=== PATIENT | female | born 1950 | race Caucasian/White ===

== ENCOUNTER 2016-10-10 08:25 | Emergency (ER) | payer OTHER ==
[2016-10-10 08:34] VITALS: TEMP 97.5
--- NOTE | 2016-10-10 08:41 | EDPHY ---
H & P Time Seen by Provider: 10/10/16 08:36 HPI/ROS: Chief complaint. Chest pain HPI. 65-year-old female presents with chest discomfort that began at 6:00 a.m. this morning. She was in bed when it started. She describes as pressure mid chest radiating to the her back and neck. Somewhat better with sitting up. Still present but it is better. No change with exertion or breathing. She had elevated heart rate last week after chemotherapy. She denies shortness of breath today. No cough or fever. No unusual leg pain or swelling. Aspirin prior to arrival. Chemotherapy for ovarian cancer with last chemo 1 week ago. She did have a previous cardiac workup years ago and it was felt that she had indigestion ROS Constitutional. no fever/chills, no weakness Eyes. no problems with vision ENT. no sore throat, no nasal drainage Cardiovascular. Chest pressure Respiratory. no shortness of breath, no cough Abdominal. no abdominal pain, no nausea/vomiting, no diarrhea . no problems urinating MS. no calf pain/swelling, no neck/back pain, no joint pain Skin. no rash Lymph. no swollen glands Neuro. no headache, no dizziness, no difficulty walking or with speech Past Medical/Surgical History: Ovarian cancer currently undergoing chemotherapy, hysterectomy Brother with congestive heart failure otherwise no Social History: Single, nonsmoker, no alcohol Smoking Status: Never smoked Physical Exam: General Appearance: Alert well-developed female mild distress vital signs significant for heart rate 101 Eyes: Pupils equal and round no pallor or injection. ENT, Mouth: Mucous membranes are moist. Respiratory: There are no retractions, lungs are clear to auscultation. Cardiovascular: Regular rate and rhythm. Gastrointestinal: Abdomen is soft and nontender, no masses, bowel sounds normal. Neurological: Awake and alert, sensory and motor exams grossly normal. Skin: Warm and dry, no rashes. Musculoskeletal: Neck is supple nontender. Extremities symmetrical, full range of motion. Psychiatric: Patient is oriented X 3, there is no agitation. Constitutional: Initial Vital Signs Temperature (C) 36.4 C 10/10/16 08:31 Heart Rate 101 H 10/10/16 08:31 Respiratory Rate 16 10/10/16 08:31 Blood Pressure 114/90 H 10/10/16 08:31 O2 Sat (%) 95 10/10/16 08:31 O2 Delivery Mode Room Air Allergies/Adverse Reactions: penicillin G Allergy (Verified 10/10/16 08:27) Home Medications: Medication Instructions Recorded Albuterol 10/10/16 CARBOPLATIN 10/10/16 Dexamethasone 10/10/16 Prochlorperazine Maleate 10/10/16 Zofran Odt 10/10/16 Medical Decision Making - Diagnostics EKG Interpretation: EKG interpreted by me shows normal sinus rhythm normal interval and axis. QRS is normal. There is T-wave flattening inferiorly. No significant ST elevation or depression. Rate is 97 No old EKGs in our system for comparison Imaging Results: Imaging Impressions Chest X-Ray 10/10/16 08:46 Impression: 1. No active cardiopulmonary disease seen. 2. Central vascular port in good position. Chest/Thorax CTA 10/10/16 09:46 Impression: 1. Mild to moderate volume segmental to subsegmental pulmonary emboli right lower lobe and lingula. 2. Subsegmental atelectasis within the lingula. 3. Small hiatal hernia. Findings discussed with Dawood Velasco M.D. at 10:55 hour, 10/10/2016. Chest x-ray interpreted by Me is normal CT angiogram shows moderate volume PE right lower lobe and lingula Procedures: IV normal saline, monitor ED Course/Re-evaluation: Re-evaluation 9:40 a.m.. Patient is stable. Tachycardic at 1:01 a.m.. Patient and I discussed lab and imaging studies as well as EKG. We discussed elevated D-dimer and recommendation for chest CT. She expresses understanding and agreement. Patient is given a L of saline to help flush contrast. 11:00 a.m. re-evaluation. Patient and I discussed imaging results, treatment plan including recommendation for admission. She expresses understanding and agreement. She would like to be transferred to [facility] because this is where her oncology care is being done. I tried to get in touch with Dr. Johnson her regular physician. Lovenox 1 milligram/kilogram subcu is given I consulted and discussed the case with Dr. Schuyler sandoval at [facility] who accepts the patient in transport. She will be transferred by ambulance Differential Diagnosis: I considered acute coronary syndrome, pneumonia, pulmonary embolus - Data Points Laboratory Results: Laboratory Results 10/10/16 08:45 10/10/16 08:45 10/10/16 10/10/16 10/10/16 08:45 08:45 08:45 WBC 4.88 10^3/uL 10^3/uL (3.80-9.50) RBC 5.01 10^6/uL 10^6/uL (4.18-5.33) Hgb 14.2 g/dL g/dL (12.6-16.3) Hct 42.6 % % (38.0-47.0) MCV 85.0 fL fL (81.5-99.8) MCH 28.3 pg pg (27.9-34.1) MCHC 33.3 g/dL g/dL (32.4-36.7) RDW 15.2 % % (11.5-15.2) Plt Count 219 10^3/uL 10^3/uL (150-400) MPV 8.9 fL fL (8.7-11.7) Neut % (Auto) 75.4 % H % (39.3-74.2) Lymph % (Auto) 23.2 % % (15.0-45.0) [place] % (Auto) 1.0 % L % (4.5-13.0) Eos % (Auto) 0.0 % L % (0.6-7.6) Baso % (Auto) 0.0 % L % (0.3-1.7) Nucleat RBC Rel Count 0.0 % % (0.0-0.2) Absolute Neuts (auto) 3.68 10^3/uL 10^3/uL (1.70-6.50) Absolute Lymphs (auto) 1.13 10^3/uL 10^3/uL (1.00-3.00) Absolute Monos (auto) 0.05 10^3/uL L 10^3/uL (0.30-0.80) Absolute Eos (auto) 0.00 10^3/uL L 10^3/uL (0.03-0.40) Absolute Basos (auto) 0.00 10^3/uL L 10^3/uL (0.02-0.10) Absolute Nucleated RBC 0.00 10^3/uL 10^3/uL (0-0.01) Immature Gran % 0.4 % % (0.0-1.1) Immature Gran # 0.02 10^3/uL 10^3/uL (0.00-0.10) D-Dimer 2.49 ug/mLFEU H ug/mLFEU (0.00-0.50) Sodium 136 mEq/L mEq/L (134-144) Potassium 4.1 mEq/L mEq/L (3.5-5.2) Chloride 97 mEq/L mEq/L (97-110) Carbon Dioxide 25 mEq/l mEq/l (22-31) Anion Gap 14 mEq/L mEq/L (8-16) BUN 19 mg/dL mg/dL (7-23) Creatinine 0.7 mg/dL mg/dL (0.6-1.0) Estimated GFR > 60 Glucose 124 mg/dL H mg/dL (70-100) Calcium 10.3 mg/dL mg/dL (8.5-10.4) Troponin I < 0.012 ng/mL ng/mL (0.000-0.034) Medications Given: Discontinued Medications Enoxaparin Sodium (Lovenox) 75 mg SC EDNOW ONE Stop: 10/10/16 11:10 Last Admin: 10/10/16 11:43 Dose: 75 mg Sodium Chloride (Ns) 1,000 mls @ 0 mls/hr IV ONCE ONE; Wide Open PRN Reason: Protocol Stop: 10/10/16 09:47 Last Admin: 10/10/16 09:57 Dose: 1,000 mls Departure - Departure Disposition: [facility] Clinical Impression: Pulmonary embolism Qualifiers: Pulmonary embolism type: other Chronicity: acute Acute cor pulmonale presence: without acute cor pulmonale Qualified Code(s): I26.99 - Other pulmonary embolism without acute cor pulmonale Condition: Fair Referrals: YAMILET AMBROSE [Other] - As per Instructions
--- NOTE | 2016-10-10 08:44 | CPEKG ---
Heart Rate: 97 RR Interval: 619 P-R Interval: 132 QRSD Interval: 86 QT Interval: 344 QTC Interval: 437 P [place]: -17 QRS [place]: 31 T Wave [place]: 10 EKG Severity - BORDERLINE ECG - EKG Impression: SINUS RHYTHM EKG Impression: BORDERLINE INFERIOR Q WAVES Electronically Signed By: Dawood Velasco 10-Oct-2016 13:01:16
[2016-10-10 08:53] LABS: % IMMATURE GRANULYOCYTES 0.4 % (0.0-1.1); ABSOLUTE IMMATURE GRANULOCYTES 0.02 10^3/uL (0.00-0.10); ADD DIFF? NO; ADD MORPH? NO; ADD SCAN? NO; ATYPICAL LYMPHOCYTE FLAG 0 (0-99); FRAGMENT RBC FLAG 0 (0-99); HEMATOCRIT 42.6 % (38.0-47.0); HEMOGLOBIN 14.2 g/dL (12.6-16.3); LEFT SHIFT FLG 0 (0-99); LIPEMIA HEMOLYSIS FLAG 80 (0-99); MEAN CELL HEMOGLOBIN 28.3 pg (27.9-34.1); MEAN CELL HEMOGLOBIN CONCENTR. 33.3 g/dL (32.4-36.7); MEAN PLATELET VOLUME 8.9 fL (8.7-11.7); PLATELET CLUMPS FLAG 10 (0-99); PLATELET COUNT 219 10^3/uL (150-400); RED BLOOD CELL COUNT 5.01 10^6/uL (4.18-5.33); RED CELL DISTRIBUTION WIDTH 15.2 % (11.5-15.2)
[2016-10-10 09:21] VITALS: RESP 18
[2016-10-10 09:26] LABS: ANION GAP 14 mEq/L (8-16); CALCIUM 10.3 mg/dL (8.5-10.4); CARBON DIOXIDE 25 mEq/l (22-31); CHLORIDE 97 mEq/L (97-110); CREATININE 0.7 mg/dL (0.6-1.0); GLOMERULAR FILTRATION RATE > 60; GLUCOSE 124 mg/dL (70-100); POTASSIUM 4.1 mEq/L (3.5-5.2); SODIUM 136 mEq/L (134-144)
[2016-10-10 09:37] LABS: TROPONIN I < 0.012 ng/mL (0.000-0.034)
[2016-10-10] MEDS ORDERED: NS 1,000 ML IV ONE (09:46)
[2016-10-10] MEDS ORDERED: IOPAMIDOL (ISOVUE 370) 100 ML BTL IV ONE (10:09)
[2016-10-10] MEDS ORDERED: ENOXAPARIN 80 MG/0.8 ML SYR SC ONE (11:09)
[2016-10-10 11:54] VITALS: BP 141/99
[2016-10-10 12:36] VITALS: PULSE 84; O2SAT 95
== END 2016-10-10 12:34 | disposition short-term general hospital (02) ==
DX: I26.99 Other pulmonary embolism without acute cor pulmonale (principal); E86.9 Volume depletion, unspecified; Z85.43 Personal history of malignant neoplasm of ovary
CPT/HCPCS: J1650; Q9967

== ENCOUNTER 2018-02-15 21:45 | Observation (INO) | payer OTHER ==
--- NOTE | 2018-02-15 22:04 | EDPHY ---
H & P Stated Complaint: SYNCOPAL EPISODE, NAUSEA, WEAKNESS @ 2030 Time Seen by Provider: 02/15/18 22:04 HPI/ROS: HPI CHIEF COMPLAINT: Syncope HISTORY OF PRESENT ILLNESS: 67-year-old female presents emergency room by private vehicle for syncope. Presents emergency room after she had a syncopal episode at home. She states she was standing in the kitchen making dinner got very flushed, lightheaded, felt very warm went outside to cool off and felt even further nauseous and lightheaded. She went to the bathroom sat on the toilet could barely hold herself up she did have a bowel movement. No vomiting. States her bowel movement was normal. She got up off the toilet walk a few steps got even more lightheaded without dizziness, and then had a syncopal episode. She fell to the ground did not strike her head. She recovered rather quickly. She denies any chest pain or shortness of breath or palpitations during this event. She was standing in the kitchen cooking. She does state it was hot. Since arriving to the emergency room she states she feels globally weak. Otherwise she has no chest pain or shortness of breath. Denies nausea vomiting. Past Medical History: Ovarian cancer, pulmonary embolism Past Surgical History: Hysterectomy, chest port Social History: Denies drugs alcohol tobacco. Family History: Noncontributory ROS REVIEW OF SYSTEMS: 10 Systems were reviewed and negative with the exception of the elements mentioned in the history of present illness. Exam Constitutional appears well nontoxic no acute distress triage nursing summary reviewed, vital signs reviewed, awake/alert. Eyes normal conjunctivae and sclera, EOMI, PERRLA. HENT normal inspection, atraumatic, moist mucus membranes, no epistaxis, neck supple/ no meningismus, no raccoon eyes. Respiratory clear to auscultation bilaterally, normal breath sounds, no respiratory distress, no wheezing. Cardiovascular rate normal, regular rhythm, no murmur, no edema, distal pulses normal. Gastrointestinal soft, non-tender, no rebound, no guarding, normal bowel sounds, no distension, no pulsatile mass. Genitourinary no CVA tenderness. Musculoskeletal no midline vertebral tenderness, full range of motion, no calf swelling, no tenderness of extremities, no meningismus, good pulses, neurovascularly intact. Skin pink, warm, & dry, no rash, skin atraumatic. Neurologic awake, alert and oriented x 3, AAOx3, moves all 4 extremities equally, motor intact, sensory intact, CN II-XII intact, normal cerebellar, normal vision, normal speech. Psychiatric normal mood/affect. Heme/Lymph/Immune no lymphadenopathy. Differential Diagnosis: Differential diagnosis includes but is not limited to: ACS, atypical chest pain, pneumothorax, pneumonia, pulmonary embolism, aortic dissection, congestive heart failure, tumor, musculoskeletal pain, esophageal pain, GERD, peptic ulcer disease, pancreatitis Medical Decision Making: Plan for this patient IV establishment IV fluid bolus , check D-dimer, troponin, EKG, monitoring tech, electrolytes, and re-evaluate. Re-evaluation: EKG interpretation by me on record in [facility] system. Impression time of EKG 2211, sinus rhythm rate of 88 this is a normal sinus rhythm without any signs of cardiac arrhythmia or acute ischemia specifically no ST elevation no ST depression no T-wave abnormalities no prolonged intervals. Troponin 0.00 D-dimer negative. Electrolytes are appropriate. Vital signs are stable with no tachycardia no hypoxia. EKG is normal without any ischemia or cardiac arrhythmia. CBC reviewed shows slightly high white count. Urinalysis pending. Patient re-evaluated eager for discharge wants to go home. She states she feels fine. Denies chest pain or shortness of breath. Denies feeling lightheaded or ill. 0125: Patient ambulated around the emergency room still feels lightheaded, and nauseous. Offered patient hospital admission for observation rehydration nausea control and syncope she is agreeable for this. She states she does not feel well enough to go home. Plan for hospital admission for nausea, lightheadedness, and syncopal episode earlier tonight. - Personal History Current Tetanus Diphtheria and Acellular Pertussis (TDAP): Yes - Medical/Surgical History Hx Asthma: No Hx Chronic Respiratory Disease: No Hx Diabetes: No Hx Cardiac Disease: No Hx Renal Disease: No Hx Cirrhosis: No Hx Alcoholism: No Hx HIV/AIDS: No Hx Splenectomy or Spleen Trauma: No Other PMH: ovarian ca stage I, hysterectomy. IV chemo, IN REMISSION FOR 1 YEAR - Social History Smoking Status: Never smoked Constitutional: Initial Vital Signs Temperature (C) 36.8 C 02/15/18 21:58 Heart Rate 100 02/15/18 21:58 Respiratory Rate 16 02/15/18 21:58 Blood Pressure 135/87 H 02/15/18 21:58 O2 Sat (%) 96 02/15/18 21:58 O2 Delivery Mode Room Air Allergies/Adverse Reactions: marie Allergy (Severe, Verified 02/16/18 09:17) Anaphylaxis marie flavor Allergy (Severe, Verified 02/16/18 09:17) Anaphylaxis adhesive tape Allergy (Verified 02/15/18 21:57) beeswax Allergy (Verified 02/15/18 21:57) erythromycin base Allergy (Verified 02/16/18 09:17) nausea penicillin G Allergy (Verified 10/10/16 08:27) Home Medications: Medication Instructions Recorded Loperamide HCl [Imodium 2 mg (*)] 2 mg PO QID PRN cap 02/16/18 Ranitidine HCl [Zantac] 150 mg PO DAILY PRN 02/16/18 Medical Decision Making - Data Points Laboratory Results: Laboratory Results 02/15/18 22:13 02/15/18 22:13 Medications Given: Discontinued Medications Acetaminophen (Tylenol) 650 mg PO Q4HRS PRN PRN Reason: Pain, Mild/Fever, Can Take PO Stop: 08/15/18 10:11 Last Admin: 02/16/18 15:21 Dose: 650 mg Furosemide (Lasix Injection) 40 mg IVP EDNOW ONE Stop: 02/16/18 00:30 Last Admin: 02/16/18 00:41 Dose: Not Given Sodium Chloride (Ns) 1,000 mls @ 0 mls/hr IV EDNOW ONE; Wide Open PRN Reason: Protocol Stop: 02/15/18 22:06 Last Admin: 02/15/18 22:22 Dose: 1,000 mls Sodium Chloride (Ns) 1,000 mls @ 0 mls/hr IV ONCE ONE PRN Reason: Wide Open Stop: 02/16/18 01:25 Last Admin: 02/16/18 01:28 Dose: 1,000 mls Sodium Chloride (Ns) 1,000 mls @ 125 mls/hr IV CONT YESSENIA Stop: 08/15/18 10:14 Last Admin: 02/16/18 10:27 Dose: 1,000 mls Influenza Virus Vaccine Quadrival (Flulaval Quad [id number] (6mo+)) 0.5 ml IM .ONCE ONE Stop: 02/16/18 10:29 Last Admin: 02/16/18 10:59 Dose: 0.5 ml Loperamide HCl ( Imodium) 2 mg PO QID PRN PRN Reason: Diarrhea/Loose Stools Stop: 08/15/18 10:16 Last Admin: 02/16/18 10:27 Dose: 2 mg Ondansetron HCl (Zofran Odt) 4 mg PO Q4HRS PRN PRN Reason: Nausea/Vomiting, Use 1st Stop: 08/15/18 10:11 Last Admin: 02/16/18 10:27 Dose: 4 mg Promethazine HCl (Phenergan) 6.25 mg IVP ONCE ONE Stop: 02/16/18 01:25 Last Admin: 02/16/18 01:28 Dose: 6.25 mg Point of Care Test Results: Chemistry 02/15/18 22:13 POC Troponin I 0.00 ng/mL ng/mL (0.00-0.08) Departure - Departure Disposition: [facility] Clinical Impression: Syncope Qualifiers: Syncope type: unspecified Qualified Code(s): R55 - Syncope and collapse Condition: Good
[2018-02-15] MEDS ORDERED: NS 1,000 ML IV ONE (22:05)
[2018-02-15 22:24] LABS: PLATELET COUNT 241 10^3/uL (150-400)
[2018-02-15 22:32] LABS: INR 0.94 (0.83-1.16); PROTIME(PATIENT) 12.8 SEC (12.0-15.0)
[2018-02-15 22:36] LABS: CREATINE KINASE 49 IU/L (0-156)
[2018-02-16] MEDS ORDERED: FUROSEMIDE 40 MG/4 ML VIAL IVP ONE (00:29)
[2018-02-16] MEDS ORDERED: PROMETHAZINE HCL 25 MG/ML INJ IVP ONE (01:24)
[2018-02-16] MEDS ORDERED: NS 1,000 ML IV ONE (01:24)
[2018-02-16] MEDS ORDERED: PROMETHAZINE HCL 25 MG/ML INJ ONE (01:25)
[2018-02-16] MEDS ORDERED: ACETAMINOPHEN 325 MG TAB PO PRN (10:12)
[2018-02-16] MEDS ORDERED: ONDANSETRON DISINTEGRATING 4 MG TAB PO PRN (10:12)
[2018-02-16] MEDS ORDERED: ONDANSETRON 4 MG/2 ML VIAL IVP PRN (10:12)
[2018-02-16] MEDS ORDERED: NS 1,000 ML IV SCH (10:15)
[2018-02-16] MEDS ORDERED: LOPERAMIDE HCL 2 MG CAP PO PRN (10:17)
--- NOTE | 2018-02-16 10:21 | PDGENHP ---
History and Physical - Chief Complaint Syncope - History of Present Illness Iris Durant is a 67 yo F with a PMHx of Ovarian Cancer, PE in 2017 who presents to [facility] after syncopal episode last night. She reports she was in her kitchen cooking dinner when she acutely became lightheaded, felt very warm, and became nauseous. She went to the bathroom, feeling very weak, and had an episode of diarrhea. After getting up from the toilet, she took a few steps and then passed out. She denies any trauma to body or head. She denies other preceding symptoms including chest pain, palpitations, shortness of breath, headache, visual changes, weakness, numbness, seizure activity. She denies any incontinence or tongue biting. She reports that she experienced significant chest pain when he had a PE in 2017 and had no syncope associated at that time. She reports that she has been feeling well up until yesterday evening. She has had several episodes of diarrhea overnight since coming to the hospital and continues to feel mildly nauseous. History Information - Allergies/Home Medication List Allergies/Adverse Reactions: marie Allergy (Severe, Verified 02/16/18 09:17) Anaphylaxis marie flavor Allergy (Severe, Verified 02/16/18 09:17) Anaphylaxis adhesive tape Allergy (Verified 02/15/18 21:57) beeswax Allergy (Verified 02/15/18 21:57) erythromycin base Allergy (Verified 02/16/18 09:17) nausea penicillin G Allergy (Verified 10/10/16 08:27) Home Medications: Ranitidine HCl [Zantac] 150 mg PO DAILY PRN 02/16/18 [Last Taken 02/14/18] I have personally reviewed and updated: family history, medical history, social history, surgical history - Past Medical History cancer, pulmonary embolism - Surgical History Reports: hysterectomy - Family History Positive for: non-pertinent - Social History Smoking Status: Never smoked Review of Systems Review of Systems: ROS: 10pt was reviewed & negative except for what was stated in HPI & below Physical Exam Physical Exam: Temp Pulse Resp BP Pulse Ox 37.2 C 108 H 14 136/81 H 92 02/16/18 07:56 02/16/18 07:56 02/16/18 07:56 02/16/18 07:56 02/16/18 07:56 Constitutional: no apparent distress Eyes: PERRL Ears, Nose, Mouth, Throat: moist mucous membranes Cardiovascular: regular rate and rhythym, tachycardia Respiratory: no respiratory distress Gastrointestinal: soft, non-tender abdomen Skin: warm Musculoskeletal: full muscle strength Neurologic: AAOx3 Psychiatric: interacting appropriately Lab Data & Imaging Review 02/15/18 22:13 02/15/18 22:13 WBC 16.79 10^3/uL (3.80-9.50) H 02/15/18 22:13 RBC 5.11 10^6/uL (4.18-5.33) 02/15/18 22:13 Hgb 15.3 g/dL (12.6-16.3) 02/15/18 22:13 Hct 44.5 % (38.0-47.0) 02/15/18 22:13 MCV 87.1 fL (81.5-99.8) 02/15/18 22:13 MCH 29.9 pg (27.9-34.1) 02/15/18 22:13 MCHC 34.4 g/dL (32.4-36.7) 02/15/18 22:13 RDW 13.4 % (11.5-15.2) 02/15/18 22:13 Plt Count 241 10^3/uL (150-400) 02/15/18 22:13 MPV 8.6 fL (8.7-11.7) L 02/15/18 22:13 Neut % (Auto) 82.1 % (39.3-74.2) H 02/15/18 22:13 Lymph % (Auto) 10.8 % (15.0-45.0) L 02/15/18 22:13 [place] % (Auto) 5.8 % (4.5-13.0) 02/15/18 22:13 Eos % (Auto) 0.7 % (0.6-7.6) 02/15/18 22:13 Baso % (Auto) 0.2 % (0.3-1.7) L 02/15/18 22:13 Nucleat RBC Rel Count 0.0 % (0.0-0.2) 02/15/18 22:13 Absolute Neuts (auto) 13.78 10^3/uL (1.70-6.50) H 02/15/18 22:13 Absolute Lymphs (auto) 1.81 10^3/uL (1.00-3.00) 02/15/18 22:13 Absolute Monos (auto) 0.97 10^3/uL (0.30-0.80) H 02/15/18 22:13 Absolute Eos (auto) 0.12 10^3/uL (0.03-0.40) 02/15/18 22:13 Absolute Basos (auto) 0.04 10^3/uL (0.02-0.10) 02/15/18 22:13 Absolute Nucleated RBC 0.00 10^3/uL (0-0.01) 02/15/18 22:13 Immature Gran % 0.4 % (0.0-1.1) 02/15/18 22:13 Immature Gran # 0.07 10^3/uL (0.00-0.10) 02/15/18 22:13 PT 12.8 SEC (12.0-15.0) 02/15/18 22:13 INR 0.94 (0.83-1.16) 02/15/18 22:13 APTT 24.3 SEC (23.0-38.0) 02/15/18 22:13 D-Dimer 0.43 ug/mLFEU (0.00-0.50) 02/15/18 22:13 Sodium 138 mEq/L (135-145) 02/15/18 22:13 Potassium 3.7 mEq/L (3.5-5.2) 02/15/18 22:13 Chloride 104 mEq/L (97-110) 02/15/18 22:13 Carbon Dioxide 25 mEq/l (22-31) 02/15/18 22:13 Anion Gap 9 mEq/L (6-14) 02/15/18 22:13 BUN 13 mg/dL (7-23) 02/15/18 22:13 Creatinine 0.7 mg/dL (0.6-1.0) 02/15/18 22:13 Estimated GFR > 60 02/15/18 22:13 Glucose 101 mg/dL (70-100) H 02/15/18 22:13 Calcium 10.0 mg/dL (8.5-10.4) 02/15/18 22:13 Magnesium 2.1 mg/dL (1.6-2.3) 02/15/18 22:13 Total Bilirubin 0.4 mg/dL (0.1-1.4) 02/15/18 22:13 Conjugated Bilirubin 0.3 mg/dL (0.0-0.5) 02/15/18 22:13 Unconjugated Bilirubin 0.1 mg/dL (0.0-1.1) 02/15/18 22:13 AST 19 IU/L (14-46) 02/15/18 22:13 ALT 24 IU/L (9-52) 02/15/18 22:13 Alkaline Phosphatase 78 IU/L (38-126) 02/15/18 22:13 Creatine Kinase 49 IU/L (0-156) 02/15/18 22:13 CK-MB (CK-2) Fraction 1.07 ng/mL (0.00-4.55) 02/15/18 22:13 POC Troponin I 0.00 ng/mL (0.00-0.08) 02/15/18 22:13 NT-Pro-B Natriuret Pep 53 pg/mL (0-125) 02/15/18 22:13 Total Protein 7.3 g/dL (6.3-8.2) 02/15/18 22:13 Albumin 4.4 g/dL (3.5-5.0) 02/15/18 22:13 Lipase 246 IU/L (23-300) 02/15/18 22:13 Urine Color PALE YELLOW 02/15/18 23:50 Urine Appearance CLEAR 02/15/18 23:50 Urine pH 7.0 (5.0-7.5) 02/15/18 23:50 Ur Specific [place] 1.005 (1.002-1.030) 02/15/18 23:50 Urine Protein NEGATIVE (NEGATIVE) 02/15/18 23:50 Urine Ketones TRACE (NEGATIVE) H 02/15/18 23:50 Urine Blood NEGATIVE (NEGATIVE) 02/15/18 23:50 Urine Nitrate NEGATIVE (NEGATIVE) 02/15/18 23:50 Urine Bilirubin NEGATIVE (NEGATIVE) 02/15/18 23:50 Urine Urobilinogen NEGATIVE EU (0.2-1.0) 02/15/18 23:50 Ur Leukocyte Esterase TRACE (NEGATIVE) H 02/15/18 23:50 Urine RBC NONE SEEN /hpf (0-3) 02/15/18 23:50 Urine WBC 3-5 /hpf (0-3) H 02/15/18 23:50 Ur Epithelial Cells NONE SEEN /lpf (NONE-1+) 02/15/18 23:50 Urine Glucose NEGATIVE (NEGATIVE) 02/15/18 23:50 Assessment & Plan Assessment: Syncope (Acute) - Occurred yesterday PM, associated symptoms include flushing, LH, nausea - Happen after loose BM, getting up off toilet - DDx includes Hypovolemia, Vasovagal, Arrythmia, [place], PE, Seizure - Work up overnight included negative Trop, EKG, D-Dimer, CXR - Will continue IVF, mildly tachycardic this morning s/p multiple loose BM - Will order TTE - Continue to monitor on telemetry Diarrhea - Preceding syncopal episode, continued overnight - Benign abdominal exam, likely gastroenteritis - Will order GI PCR - Ordered Imodium PRN - Continue IVF for dehydration Leukocytosis - In setting of syncope and diarrhea - CXR and UA negative for infection on exam - Continue to monitor CBC Tachycardia - Mild sinus tachycardia this morning - Likely in setting of dehydration - Will give IVF as above - Continue to monitor HR Hx of PE - PE in setting of chemotherapy in 2017, was on AC for 9 months per patient - D-dimer negative on admission - Slight sinus tachycardia, no respiratory distress, 02 sats WNL - Will hold off on CTA for now given negative D-Dimer, lack of symptoms that she experienced previously with PE FEN: IVF, Regular Code: FULL DVT PPx: Lovenox
[2018-02-16 11:02] VITALS: BP 125/71
--- NOTE | 2018-02-16 11:18 | ECHO ---
[email or web address] [address] [address] Main: [phone] Fax: Transthoracic Echocardiogram Name: JURGEN GAN MR#: [id number] Study Date: 02/16/2018 Study Time: 10:35 AM Date of : 1950 Age: 67 year(s) Height: 165.1 cm (65 in.) Weight: 73.48 kg (162 lb.) BSA: 1.81 m2 Gender: Female Examination: Echo Indication: Cardiac: syncope Image Quality: Adequate Contrast: Requested by: Tiago Denson BP: 136 mmHg/81 mmHg Heart Rate: Rhythm: Indication: Cardiac: syncope Procedure Staff Clinic Receptionist: Adrienne Mao [facility] Reading Physician: Bakari Duff MD Requesting Provider: Conclusions: Normal global systolic LV function. EF is 66 %. The mitral valve is normal in appearance and function. The aortic valve is tri-leaflet and functions normally. Measurements: Chambers Valvular Assessment AV/MV Valvular Assessment TV/PV Normal Normal Normal Name Value Range Name Value Range Name Value Range Ao Laverne (MM): 2.9 cm (2.2 cm-3.7 AV Vmax: 1.43 m/s (1 m/s-1.7 PV Vmax: 1.07 m/s (0.6 m/s-0.9 cm) m/s) m/s) IVSd (2D): 0.7 cm (0.6 cm-1.1 AV maxP mmHg ( - ) PV PGmax: 5 mmHg ( - ) cm) LVOT Vmax: 1.15 m/s (0.7 m/s-1.1 LVDd (2D): 4.3 cm (3.9 cm-5.3 m/s) cm) VIC (Vmax): 2.5 cm2 ( - ) LVDs (2D): 3.0 cm (2.1 cm-4 MV E Vmax: 0.59 m/s ( - ) cm) MV A Vmax: 0.82 m/s ( - ) LVPWd (2D): 0.7 cm ( - ) MV E/A: 0.72 ( - ) LVOTd 2.0 cm 2.0 cm mm LVEF (BP): 66 % (>=55 %) RVDd(2D): 2.8 cm (1.9 cm-3.8 cmmm) Continued Measurements: Chambers Valvular Assessment AV/MV Name Value Name Value LADs: 3.1 cm MV E' Septal: 0.06 m/s LADs Lon.7 cm MV E/E' Septal: 9.90 LA Area: 12.4 cm2 MV E/E' Lateral: 5.70 Patient: JURGEN GAN Study Date: 02/16/2018 Page 1 of 2 10:35 AM LA Volume: 27 ml LA Volume Index: 14.9 ml/m2 TAPSE: 1.8 cm Additional Vessels Name Value Ao Ascendin.6 cm Findings: Left Ventricle: Normal size left ventricle. No LV hypertrophy. Normal global systolic LV function. EF is 66 %. No regional wall motion abnormality. Normal diastolic LV function. Right Ventricle: Normal size right ventricle. Normal RV function. Left Atrium: The left atrium is normal in size. Right Atrium: The right atrium is normal in size. Mitral Valve: The mitral valve is normal in appearance and function. There is no mitral valve regurgitation. No mitral stenosis is present. Aortic Valve: The aortic valve is tri-leaflet and functions normally. There is no aortic valve regurgitation. No aortic valve stenosis is present. Tricuspid Valve: The tricuspid valve is normal in appearance and function. There is no significant tricuspid valve regurgitation. Pulmonary artery pressure is not obtained due to inadequate TR jet. Pulmonic Valve: The pulmonic valve is normal in appearance and function. Trivial pulmonic valve regurgitation. Aorta: Normal size aortic root measuring 2.9 cm. Normal size ascending aorta measuring 2.6 cm. IVC: Normal size and course of the IVC. Pericardium: Trivial pericardial effusion. (No Signature Object) Patient: JURGEN GAN Study Date: 02/16/2018 Page 2 of 2 10:35 AM [id number]
[2018-02-16 11:55] LABS: PLATELET COUNT 204 10^3/uL (150-400)
--- NOTE | 2018-02-16 15:29 | PDDCSUM ---
Discharge Summary Discharge Summary: Date of Admission/Discharge: 02/16/2018 Consults: N/A Procedures: TTE Followup: PCP Hospital Course Problem List: Syncope (Acute) - Occurred yesterday PM, associated symptoms include flushing, LH, nausea - Happen after loose BM, getting up off toilet, Norovirus + - DDx includes Hypovolemia, Vasovagal, Arrythmia, DC, PE, Seizure - Work up overnight included negative Trop, EKG, D-Dimer, CXR - S/p IVF, mildly tachycardic this morning s/p multiple loose BM - TTE WNL - Monitored on telemetry, no arrythmias noted Diarrhea - Preceding syncopal episode, continued overnight - Benign abdominal exam, likely gastroenteritis - GI PCR + Norovirus - Imodium PRN - S/p IVF, encouraged fluids at home Leukocytosis - In setting of syncope and diarrhea - CXR and UA negative for infection on exam, +Norovirus - Continue to monitor CBC Tachycardia - Mild sinus tachycardia this morning - Likely in setting of dehydration, Norovirus - S/p IVF as above - Continue to monitor HR 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
--- NOTE | 2018-02-17 07:51 | CPEKG ---
Test Reason : OPEN Blood Pressure : / mmHG Vent. Rate : 088 BPM Atrial Rate : 089 BPM P-R Int : 151 ms QRS Dur : 093 ms QT Int : 348 ms P-R-T Axes : 019 049 054 degrees QTc Int : 421 ms Sinus rhythm Confirmed by Phi Menchaca ([id number]) on 02/17/2018 7:50:58 AM Referred By: Confirmed By:Phi Menchaca
[2018-02-17] MEDS ORDERED: ENOXAPARIN 40 MG/0.4 ML SYR SC SCH (09:00)
== END 2018-02-16 16:00 | disposition home or self-care (01) ==
LOC: F2W 02-16 02:39
PROVIDERS: ADMIT Family Medicine; ATTEND Internal Medicine
DX: R55 Syncope and collapse (principal); A08.11 Acute gastroenteropathy due to Norwalk agent; E86.0 Dehydration; D72.829 Elevated white blood cell count, unspecified; R00.0 Tachycardia, unspecified; Z86.711 Personal history of pulmonary embolism; Z92.21 Personal history of antineoplastic chemotherapy; Z85.43 Personal history of malignant neoplasm of ovary; Z90.710 Acquired absence of both cervix and uterus; Z88.0 Allergy status to penicillin; Z23 Encounter for immunization
CPT/HCPCS: 71045; 90471; 93005; 93306; 96361; 96374; 99285; G0378; 84484-ER; G0008; J2550